=== PATIENT | male | born 1985 | race Hispanic/Latino ===

== ENCOUNTER 2021-08-02 16:59 | Emergency (ER) | payer OTHER ==
[~2021-08-02] VITALS: Ht 157.5 cm; Wt 80.0 kg
[2021-08-02 17:06] VITALS: BP 130/106
[2021-08-02 17:15] VITALS: BP 140/91
[2021-08-02] MEDS ORDERED: KEFLEX500 MG PO ×2 (17:45→17:57)
[2021-08-02 17:52] VITALS: BP 130/106
== END 2021-08-02 18:07 | disposition home or self-care (01) | DRG 605 ==
LOC: ED 16:59
DX: S01.01XA Laceration without foreign body of scalp, initial encounter (principal); W26.8XXA Contact with other sharp object(s), not elsewhere classified, initial encounter